=== PATIENT | male | born 1985 | race Caucasian/White ===

== ENCOUNTER → 2024-08-08 | Outpatient (CLI) | payer OTHER ==
--- NOTE | 2024-08-08 09:51 | MR ---
INDICATION: Patient age:Male; 39 years old; Reason for study: M54.2 CERVICALGIA M48.02 SPINAL STENOSIS, CERVICAL; PHH. COMPARISON: None. TECHNIQUE: Multi planar, multi sequence imaging was performed. No Gadolinium was given. FINDINGS: Alignment: The cervical vertebral bodies have preserved heights. Alignment is within normal limits gi esther patient positioning. Bones: Bone signal is within normal limits. Cord: The spinal cord is unremarkable with regards to their signal intensity and morphology. Discs: Mild multilevel disc desiccation. Disc height loss most prominent at C6-C7. C2-C3: No significant disc pathology. The spinal canal is patent. No neural foraminal stenosis. C3-C4: No significant disc pathology. The spinal canal is patent. Uncovertebral joint hypertrophy wit h mild right neural foraminal narrowing. The left neural foramen is patent. C4-C5: No significant disc pathology. The spinal canal is patent. Uncovertebral joint hypertrophy wi th mild left neural foraminal narrowing. The right neural foramen is patent C5-C6: No significant disc pathology. The spinal canal is patent. No neural foraminal stenosis. C6-C7: Broad-based disc bulge without significant effacement of the anterior thecal sac. Uncovertebr al joint hypertrophy with mild left neural foraminal narrowing. Right neuroforamen is patent. C7-T1: No significant disc pathology. The spinal canal is patent. No neural foraminal stenosis. Other: None. IMPRESSION: 1. No evidence for disc herniation or significant spinal canal stenosis. 2. Mild multilevel disc degeneration with uncovertebral joint hypertrophy. Most prominent at C6-C7. [facility], , 08/08/2024 9:49 AM
== END | disposition home or self-care (01) ==
LOC: RADMRIMAIN 05:59
PROVIDERS: ATTEND Orthopaedic Surgery Orthopaedic Surgery of the Spine
DX: M48.02 Spinal stenosis, cervical region (principal); M50.30 Other cervical disc degeneration, unspecified cervical region; M47.812 Spondylosis without myelopathy or radiculopathy, cervical region
CPT/HCPCS: 72141